=== PATIENT | female | born 1940 | race Caucasian/White ===

== ENCOUNTER 2023-03-02 17:55 | Emergency (ER) | payer MEDICARE, OTHER, SELFPAY ==
[2023-03-02 18:10] VITALS: BP 132/74; PULSE 62; TEMP 36.7; O2SAT 96; BMI 29.2
--- NOTE | 2023-03-02 18:15 | XRR_ITS ---
PROCEDURE INFORMATION: Exam: XR Chest Exam date and time: 03/02/2023 6:25 PM Age: 82 years old Clinical indication: Pain; Chest pressure; Prior surgery; Surgery date: 6+ months; Surgery type: Herson breast recon; Additional info: Cp TECHNIQUE: Imaging protocol: Radiologic exam of the chest. Views: 1 view. COMPARISON: No relevant prior studies available. FINDINGS: Lungs: Unremarkable. No consolidation. Pleural spaces: Unremarkable. No pleural effusion. No pneumothorax. Heart/Mediastinum: Unremarkable. No cardiomegaly. Bones/joints: Unremarkable. XR/XR chest 1V portable [id number] IMPRESSION: No acute findings.
--- NOTE | 2023-03-02 18:16 | ECG_ITS ---
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 Measurements Intervals [place] Rate: 64 P: -5 CO: 145 QRS: -25 QRSD: 96 T: 60 QT: 394 QTc: 408 Interpretive Statements SINUS RHYTHM BORDERLINE LEFT AXIS DEVIATION [QRS AXIS < -20] LOW QRS VOLTAGE IN PRECORDIAL LEADS [QRS DEFLECTION < 1.0 mV IN CHEST LEADS] PATTERN CONSISTENT WITH PULMONARY DISEASE NONSPECIFIC ST & T-WAVE ABNORMALITY No previous ECG available for comparison Electronically Signed On 03-03-2023 0:16:40 CDT by Jaskaran Patel M.D. [id number]
[2023-03-02 18:59] LABS: Basophils % 0.5 %; Eosinophils # 0.7 10^3/uL (0.0-0.8); Hemoglobin 10.9 g/dL (11.5-15.3); Lymphocytes # 1.3 10^3/uL (0.8-4.8); Lymphocytes % 15.7 %; Mean Corpuscular HGB Conc 30.3 g/dL (30.0-36.0); Mean Corpuscular Hemoglobin 25.5 pg (28.0-34.0); Mean Corpuscular Volume 84.3 fl (81-99); Mean Platelet Volume 10.7 fL (7.4-10.4); Monocytes # 0.8 10^3/uL (0.2-0.9); Monocytes % 9.1 %; Neutrophils # 5.48 10^3/uL (1.8-7.7); Neutrophils % 66.3 %; Nucleated Red Blood Cells % 0 %; Platelet Count 264 10^3/cmm (130-400); Red Blood Count 4.27 10^6/uL (4.1-5.3); Red Cell Distribution Width 15.4 % (12.1-15.1); White Blood Count 8.3 10^3/uL (4.0-10.0)
[2023-03-02 19:11] LABS: INR 0.92 (0.8-1.2)
[2023-03-02 19:16] LABS: Troponin(5th) Baseline 16 ng/L (0-10)
[2023-03-02 19:19] LABS: Alanine Aminotransferase 51 U/L (0-33); Alkaline Phosphatase 69 U/L (35-105); Anion Gap 15.7 (5-19); Aspartate Amino Transferase 54 U/L (0-32); Blood Urea Nitrogen 20 mg/dL (8-23); Calcium 8.6 mg/dL (8.5-10.5); Carbon Dioxide 26 mmol/L (22-29); Chloride 102 mmol/L (98-107); Globulin 2.3 g/dL (1.3-4.6); Glucose 103 mg/dL (65-115); Osmolality Calculated 293 mOsm/kg (285-295); Potassium 3.7 mmol/L (3.5-5.1); Sodium 140 mmol/L (136-145); Total Bilirubin 0.3 mg/dL (0.15-1.2); Total Protein 6.3 g/dL (6.6-8.7)
[2023-03-02 21:19] LABS: Troponin 5 2HR 16.51 ng/L (0-10)
[2023-03-02 21:26] LABS: Troponin 5 2HR Delta 0.51 ABS# (0-10)
--- NOTE | 2023-03-02 22:12 | ECG_ITS ---
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 Measurements Intervals [place] Rate: 54 P: 42 LA: 175 QRS: 91 QRSD: 104 T: 67 QT: 457 QTc: 435 Interpretive Statements SINUS BRADYCARDIA BORDERLINE RIGHT AXIS DEVIATION [QRS AXIS > 90] LOW QRS VOLTAGE IN PRECORDIAL LEADS [QRS DEFLECTION < 1.0 mV IN CHEST LEADS] PATTERN CONSISTENT WITH PULMONARY DISEASE MODERATE T-WAVE ABNORMALITY, CONSIDER ANTEROLATERAL ISCHEMIA [-0.1+ mV T-WAVE IN V3-V6] Compared to ECG 03/02/2023 18:20:51 Possible ischemia now present Sinus rhythm no longer present T-wave abnormality still present Electronically Signed On 03-03-2023 17:01:08 CDT by Bakari Degroot M.D. [id number]
--- NOTE | 2023-03-02 22:15 | ED_ITS ---
HPI - Arrhythmia/Palpitations General: Chief Complaint: Arrhythmia/Palpitations Stated Complaint: heart issues Time Seen by Provider: 03/02/23 21:48 Source: patient Mode of arrival: ambulatory Limitations: no limitations History of Present Illness: 82-year-old female who has a history of atrial fib states she is on metoprolol and Eliquis states that Thursday morning she had some slight dizziness and felt disoriented states she gets this way sometimes that she is dehydrated but was concerned she was taking too much Eliquis states she has held her Eliquis since then she did recently have her metoprolol increased from 50 twice daily to 100 twice daily. She has had no bleeding she states she feels much improved she is at her baseline currently. States her heart rate has been running low it is in the 50s here. Associated symptoms: Deny nausea or vomiting Review of Systems Const: Denies: fever(s) or chills Eyes: Denies: blurry vision or eye discomfort ENMT: Denies: throat pain or dental pain Card: Denies: chest pain Resp: Denies: dyspnea GI: Denies: abdominal pain, nausea, vomiting or diarrhea Musc: Denies: neck pain or back pain Neuro: Reports: dizziness; Denies: headache(s) PFSH ED PFSH: Medical History (Updated 03/02/23 @ 22:21 by Erick Santamaria MD) History of atrial fibrillation Social History (Updated 03/02/23 @ 22:21 by Erick Santamaria MD) Substance/Drug Use: never Physical Exam Const: COMMON NORMALS: no acute distress, patient oriented x3 and healthy appearing HENMT: COMMON NORMALS: normocephalic and atraumatic HEAD & SCALP: normocephalic and atraumatic Eye: COMMON NORMALS: conjunctivae normal CONJUNCTIVA: Yes conjunctivae normal Neck/C-Spine: GENERAL: Yes normal visual inspection Chest: COMMONS NORMALS: normal inspection of the chest Resp: COMMON NORMALS: normal respiratory effort, No retractions, No use of accessory muscles and clear to auscultation bilaterally AUSCULTATION: clear to auscultation bilaterally Cardio: COMMON NORMALS: regular rhythm and No murmurs present (Cardio) RATE: bradycardic RHYTHM: regular rhythm GI: COMMON NORMALS: Normal to inspection, nondistended, normoactive bowel sounds present INSPECTION: Yes normal to inspection Extremity: COMMON NORMALS: normal to inspection and full ROM Neuro: COMMON NORMALS: patient oriented x3, moves all extremities and no focal motor deficits Psych: COMMON NORMALS: mental status grossly normal, Normal thought process present and cooperative THOUGHT PROCESS: Normal thought process present Skin: COMMON NORMALS: no rashes or lesions noted and no wounds GENERAL SKIN EXAM: no rashes or lesions noted Course Vital Signs: Vital signs: Vital Signs Temperature 98.1 F 03/02/23 18:10 Pulse Rate 62 03/02/23 18:10 Blood Pressure 132/74 03/02/23 18:10 Pulse Oximetry 96 03/02/23 18:10 Oxygen Delivery Me thod Room Air 03/02/23 18:10 MDM - Arrhythmia/Palpitations Medical Decision Making Patient presents with history of A-fib she is concerned because on Thursday she childs d had some slight dizziness she thought it may be from Eliquis and stopped her Eliquis states her doctor did recently increase her metoprolol from 50 twice daily to 100 twice daily. 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 Medical Records I reviewed the patient's medical records. Lab Data I reviewed the patient's lab results. 03/02/23 18:44 03/02/23 18:44 Radiology Impressions Chest X-Ray 03/02/23 18:15 IMPRESSION: No acute findings. Laboratory Results WBC 8.3 10^3/uL (4.0-10.0) 03/02/23 18:44 RBC 4.27 10^6/uL (4.1-5.3) 03/02/23 18:44 Hgb 10.9 g/dL (11.5-15.3) L 03/02/23 18:44 Hct 36.0 % (37.0-47.0) L 03/02/23 18:44 MCV 84.3 fl (81-99) 03/02/23 18:44 MCH 25.5 pg (28.0-34.0) L 03/02/23 18:44 MCHC 30.3 g/dL (30.0-36.0) 03/02/23 18:44 RDW 15.4 % (12.1-15.1) H 03/02/23 18:44 Plt Count 264 10^3/cmm (130-400) 03/02/23 18:44 MPV 10.7 fL (7.4-10.4) H 03/02/23 18:44 Neut % (Auto) 66.3 % 03/02/23 18:44 Lymph % (Auto) 15.7 % 03/02/23 18:44 [place] % (Auto) 9.1 % 03/02/23 18:44 Eos % (Auto) 8.0 % 03/02/23 18:44 Baso % (Auto) 0.5 % 03/02/23 18:44 Neut # (Auto) 5.48 10^3/uL (1.8-7.7) 03/02/23 18:44 Lymph # (Auto) 1.3 10^3/uL (0.8-4.8) 03/02/23 18:44 [place] # (Auto) 0.8 10^3/uL (0.2-0.9) 03/02/23 18:44 Eos # (Auto) 0.7 10^3/uL (0.0-0.8) 03/02/23 18:44 Baso # (Auto) 0.0 10^3/uL (0.0-0.1) 03/02/23 18:44 Nucleated RBC % (auto) 0 % 03/02/23 18:44 Nucleated RBCs # 0.0 /100WBC 03/02/23 18:44 PT 12.60 SECONDS (12.1-14.9) 03/02/23 18:44 INR 0.92 (0.8-1.2) 03/02/23 18:44 Sodium 140 mmol/L (136-145) 03/02/23 18:44 Potassium 3.7 mmol/L (3.5-5.1) 03/02/23 18:44 Chloride 102 mmol/L (98-107) 03/02/23 18:44 Carbon Dioxide 26 mmol/L (22-29) 03/02/23 18:44 Anion Gap 15.7 (5-19) 03/02/23 18:44 BUN 20 mg/dL (8-23) 03/02/23 18:44 Creatinine 0.6 mg/dL (0.5-0.9) 03/02/23 18:44 GFR Calculation Not Reportable 03/02/23 18:44 Glucose 103 mg/dL (65-115) 03/02/23 18:44 Calculated Osmolality 293 mOsm/kg (285-295) 03/02/23 18:44 Calcium 8.6 mg/dL (8.5-10.5) 03/02/23 18:44 Total Bilirubin 0.3 mg/dL (0.15-1.2) 03/02/23 18:44 AST 54 U/L (0-32) H 03/02/23 18:44 ALT 51 U/L (0-33) H 03/02/23 18:44 Alkaline Phosphatase 69 U/L (35-105) 03/02/23 18:44 Troponin T Baseline 16 ng/L (0-10) H 03/02/23 18:44 Troponin T 120 Minute 16.51 ng/L (0-10) H 03/02/23 20:40 Delta Troponin T 0.51 ABS# (0-10) 03/02/23 20:40 Total Protein 6.3 g/dL (6.6-8.7) L 03/02/23 18:44 Albumin 4.0 g/dL (3.5-5.2) 03/02/23 18:44 Globulin 2.3 g/dL (1.3-4.6) 03/02/23 18:44 EKG Data EKG 1: I personally reviewed and interpreted this EKG as follows: EKG interpretation date: 03/02/23 EKG interpretation time: 22:12 Interpretation: sinus ramona hr [address] or t wave abnormalities qrs 104 qtc 443 Other EKG comments: Chest X-Ray 03/02/23 18:15 IMPRESSION: No acute findings. 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
[2023-03-02 22:30] VITALS: BP 145/76; PULSE 57; O2SAT 95
--- NOTE | 2023-03-08 14:27 | DCPLANNER ---
information management manager was triggered to call patient due to no primary care physician - patient does not live in the area.
== END 2023-03-02 22:31 | disposition home or self-care (01) ==
PROVIDERS: Emergency Provider Emergency Medicine
DX: R42 Dizziness and giddiness (principal); R00.1 Bradycardia, unspecified
CPT/HCPCS: 36415; 71045; 80053; 84484; 85025; 85610; 93005; 99285